=== PATIENT | female | born 1945 | race Caucasian/White ===

== ENCOUNTER 2020-06-25 19:12 | Emergency (ER) | payer MEDICARE, BC ==
--- NOTE | 2020-06-25 20:08 | CT ---
INDICATION: Head injury - slipped and fell hitting head above right ear. CT HEAD WITHOUT CONTRAST: Spiral 3.75 mm axial sections were obtained through the brain without contrast with sagittal and coronal reconstructions 06/25/20 - no comparisons. Total exam DLP was 1296.53 mGy-cm. Paranasal sinuses and mastoid air cells were well aerated. No cranial fracture site was identified. The orbits appear to be intact. Internal carotid artery calcifications are noted. A scalp hematoma is noted above and slightly behind the right ear. No underlying cranial fracture site was seen in that area. No shift of midline structures, ventricular abnormalities or abnormal areas of density were identified - no bleeding site or hematoma was seen. IMPRESSION: 1. No acute intracranial abnormalities. 2. Mild cortical atrophy. 3. Small scalp hematoma on the right. 4. Cerebrovascular disease with arterial calcifications. Report was called to Dr. Michaud at 1957 hours. [facility]
[2020-06-25] MEDS ORDERED: Acetaminophen 325 MG Tab PO ONE (20:12)
[2020-06-25] MEDS ORDERED: cloNIDine 0.1 MG Tab PO ONE (20:12)
[2020-06-25] MEDS ORDERED: Diphtheria,Pertussis(Acell),Tetanus Vaccine 0.5 ML SDV IM ONE (20:12)
--- NOTE | 2020-06-25 20:16 | EDM.PDOC ---
ED HPI GENERAL MEDICAL PROBLEM - General Chief Complaint: Head Injury Stated Complaint: FALL Time Seen by Provider: 06/25/20 20:10 Source of Information: Reports: Patient History Limitations: Reports: No Limitations - History of Present Illness INITIAL COMMENTS - FREE TEXT/NARRATIVE: Patient was brought by EMS,after she fell. She is a poor historian. She reports no LOC. Unable to remember why she fell,and no witness is present. Has h.o HTN,and stroke. forehead Pain Score (Numeric/FACES): 7 - Related Data Allergies Allergy/AdvReac Type Severity Reaction Status Date / Time No Known Allergies Allergy Verified 06/25/20 15:29 Home Meds: Home Meds Acetaminophen 500 mg PO Q6H PRN 06/25/20 [History] Bacillus Coagulans [Probiotic] 1 each PO DAILY 06/25/20 [History] Docusate Sodium/Sennosides [Senokot-S] 1 each PO DAILY 06/25/20 [History] Escitalopram Oxalate [Lexapro] 20 mg PO BEDTIME 06/25/20 [History] Glucosam/Chond-MSM 2/C/D3/Gavin [Oeccrvgegs-Zypyhqqgjkn-NEB] 2 each PO DAILY 06/25/20 [History] Lisinopril/Hydrochlorothiazide [Zestoretic 20-25 mg Tablet] 1 each PO DAILY 06/25/20 [History] Meloxicam [Mobic] 15 mg PO DAILY PRN 06/25/20 [History] Multivitamin 1 each PO DAILY 06/25/20 [History] Mupirocin Oint [Bactroban Oint] 2 applic TOP BID 06/25/20 [History] Oxybutynin Chloride [Ditropan Xl] 5 mg PO DAILY 06/25/20 [History] Pantoprazole Sodium [Protonix] 40 mg PO DAILY 06/25/20 [History] Rosuvastatin [Crestor] 5 mg PO DAILY 06/25/20 [History] polyethylene glycoL 3350 [MiraLAX] 17 gm PO DAILY 06/25/20 [History] Past Medical History Cardiovascular History: Reports: High Cholesterol, Hypertension Gastrointestinal History: Reports: Chronic Constipation, GERD, Hemorrhoids Musculoskeletal History: Reports: Osteoarthritis Other Musculoskeletal History: HIP PAIN, CHRONIC LOW BACK PAIN Other Neuro History: INSOMNIA Psychiatric History: Reports: Depression Hematologic History: Reports: Anemia - Past Surgical History Other HEENT Surgeries/Procedures: THYROID SURGERY GI Surgical History: Reports: Colonoscopy, EGD Musculoskeletal Surgical History: Reports: Knee Replacement Other Musculoskeletal Surgeries/Procedures:: RIGHT HIP ARTHROPLASTY ED ROS GENERAL - Review of Systems Review Of Systems: Comprehensive ROS is negative, except as noted in HPI. ED EXAM, HEAD INJURY - Physical Exam Exam: See Below Exam Limited By: No Limitations General Appearance: Alert, WD/WN Head: Normocephalic, Scalp Ecchymosis, Other (2 cm patietal scalp laceration) Eyes: Bilateral Eye: EOMI, PERRL Ears: Normal External Exam Nose: Normal Inspection Neck: Non-Tender, Full Range of Motion Cardiovascular: Normal Peripheral Pulses ED LACERATION/WOUND & LUIS M PROC - Laceration/Wound Repair Right Head Lac/wound length in cm: 2 Appearance: Superficial Distal NVT: Neuro & Vascular Intact Skin Prep: Chlorhexidine (Hibiciens) Closed with: Provencal EKG INTERPRETATION EKG Date: 06/25/20 Rhythm: NSR Course - Vital Signs Last Recorded V/S: Last Vital Signs Temp 97.6 F 06/25/20 19:12 Pulse 69 06/25/20 19:12 Resp 16 06/25/20 19:12 BP 189/73 H 06/25/20 19:12 Pulse Ox 99 06/25/20 19:12 - Orders/Labs/Meds Orders: Active Orders 24 hr Category Date Time Status BASIC METABOLIC PANEL,BMP [CHEM] Stat Lab 06/25/20 19:50 Received CBC WITH AUTO DIFF [HEME] Stat Lab 06/25/20 19:50 Received TROPONIN I [CHEM] Stat Lab 06/25/20 19:50 Received Departure - Departure Time of Disposition: 20:15 Disposition: Home, Self-Care 01 Condition: Good Clinical Impression: Scalp laceration - Discharge Information Referrals: Alba Allan, [employer] [Primary Care Provider] - Sepsis Event Note (ED) - Evaluation Sepsis Screening Result: No Definite Risk - Focused Exam Vital Signs: Vital Signs Temp Pulse Resp BP Pulse Ox 06/25/20 19:12 97.6 F 69 16 189/73 H 99 - Problem List & Annotations (1) Scalp laceration SNOMED Code(s): 643149289 Code(s): S01.01XA - LACERATION WITHOUT FOREIGN BODY OF SCALP, INITIAL ENCOUNTER Status: Acute Current Visit: Yes (2) HTN (hypertension) SNOMED Code(s): 54083125 Code(s): I10 - ESSENTIAL (PRIMARY) HYPERTENSION Status: Acute Current Visit: Yes Qualifiers: Hypertension type: essential hypertension Qualified Code(s): I10 - Ramone cooper (primary) hypertension - Problem List Review Problem List Initiated/Reviewed/Updated: Yes - My Orders Last 24 Hours: My Active Orders 06/25/20 19:50 BASIC METABOLIC PANEL,BMP [CHEM] Stat CBC WITH AUTO DIFF [HEME] Stat TROPONIN I [CHEM] Stat - Assessment/Plan Last 24 Hours: My Active Orders 06/25/20 19:50 BASIC METABOLIC PANEL,BMP [CHEM] Stat CBC WITH AUTO DIFF [HEME] Stat TROPONIN I [CHEM] Stat Plan: She was alert and without any symptoms. I used archie to close the laceration. I gave her Clonidine ,Tylenol and Tdap. Follow uip tomorrow for HTN.Remove archie in 5 days.
== END 2020-06-25 21:08 | disposition home or self-care (01) ==
LOC: FB.ED 19:12
DX: S01.01XA Laceration without foreign body of scalp, initial encounter (principal); E78.00 Pure hypercholesterolemia, unspecified; I10 Essential (primary) hypertension; M19.90 Unspecified osteoarthritis, unspecified site; F32.9 Major depressive disorder, single episode, unspecified; Z79.899 Other long term (current) drug therapy; K21.9 Gastro-esophageal reflux disease without esophagitis; Z23 Encounter for immunization; W19.XXXA Unspecified fall, initial encounter
CPT/HCPCS: 12001; 36415; 70450; 80048; 84484; 85025; 90471; 90715; 93005; 99284-25; A9270-GY

== ENCOUNTER 2020-06-26 08:37 | Day surgery (SDC) | payer MEDICARE, BC ==
[~2020-06-26 08:37] MED LIST: Sodium Chloride 0.9% 10 ML Syringe FLUSH PRN
[2020-06-26] MEDS ORDERED: Midazolam 1 MG/ML 2 ML SDV IV ONE (08:38)
[2020-06-26] MEDS ORDERED: fentaNYL 100 MCG/2 ML SDV IV ONE (08:38)
[2020-06-26] MEDS ORDERED: Lactated Ringers 1,000 ML IV SCH (09:20)
[2020-06-26] MEDS ORDERED: acetaZOLAMIDE 500 MG Cap.ER PO ONE (10:00)
--- NOTE | 2020-06-27 09:50 | OR ---
DATE OF OPERATION: 06/26/2020 SURGEON: Minal Ryan MD PREOPERATIVE DIAGNOSES: 1. Visually significant cataract, right eye. 2. Pseudoexfoliation syndrome, right eye. POSTOPERATIVE DIAGNOSES: 1. Visually significant cataract, right eye. 2. Pseudoexfoliation syndrome, right eye. PROCEDURES PERFORMED: Complex phacoemulsification with intraocular lens placement, right eye, CPT 76167. ASSISTANTS: None. ANESTHESIA: Local with sedation. COMPLICATIONS: None. BLOOD LOSS: None. IMPLANTS: Orlando [id number], 19.0 diopter lens implanted. CDE: 2.41. DESCRIPTION OF PROCEDURE: After risks and benefits were reviewed with the patient, consent was obtained in the preoperative area, and the operative eye was marked with a surgical pen. In the preoperative area, a pledget was used to dilate the pupil consisting of a mixture of phenylephrine 10%, cyclopentolate 2%, moxifloxacin 0.5%, and bupivacaine 0.75%. The patient was taken to the operating room, where a time-out was performed, and the patient was placed under monitored anesthesia care. Topical tetracaine was used for anesthesia. The operative eye was prepped and draped for ophthalmic surgery, and the microscope was brought into position and focused. A paracentesis incision was made, followed by injection of preservative-free 1% lidocaine into the anterior chamber, followed by injection of Viscoat into the anterior chamber. A microkeratome blade was used to make a corneal limbal incision temporally. A Malyugin ring was used to dilate the pupil to 7.0 mm due to pseudoexfoliation and poor dilation. A cystotome was used to make the beginning of the capsulorrhexis, which was carried around 360 degrees in a curvilinear fashion using Utrata forceps. A Rooney cannula with BSS was used to hydrodissect and hydrodelineate the nucleus. The nucleus was removed in a divide and conquer manner using phacoemulsification. Irrigation and aspiration were used to remove the remaining cortical material. Provisc was used to inflate the capsular bag, and a pre-loaded Orlando [id number], 19.0 diopter lens, serial number [id number] was injected into the capsular bag. A Sinskey hook was used to position and center the lens. The Malyugin ring was then removed from the anterior chamber and discarded. Next, irrigation and aspiration was used to remove any remaining viscoelastic and cortical material from the anterior chamber. BSS on a cannula was used to inflate the anterior chamber and hydrate the wound. The wound was checked and found to be watertight. 1 mg of Moxifloxacin was injected into the anterior chamber. Drapes were removed and the eye was cleaned. A drop of brimonidine 0.15% and a drop of TobraDex was placed. The eye was shielded, and the patient was taken to the recovery room in stable condition. CC: FELIX Medel CC: Sunny Christianson, [address] [address] /[phone] IRMA/NING
== END 2020-06-26 11:09 | disposition home or self-care (01) ==
LOC: FB.SDS 08:37
PROVIDERS: ATTEND Ophthalmology
DX: H25.813 Combined forms of age-related cataract, bilateral (principal); H40.1410 Capsular glaucoma with pseudoexfoliation of lens, right eye, stage unspecified; H35.371 Puckering of macula, right eye; H40.1424 Capsular glaucoma with pseudoexfoliation of lens, left eye, indeterminate stage; H43.811 Vitreous degeneration, right eye; Q14.1 Congenital malformation of retina; K21.9 Gastro-esophageal reflux disease without esophagitis; M19.90 Unspecified osteoarthritis, unspecified site; D50.9 Iron deficiency anemia, unspecified; E78.00 Pure hypercholesterolemia, unspecified; M70.62 Trochanteric bursitis, left hip; I10 Essential (primary) hypertension; F32.5 Major depressive disorder, single episode, in full remission; Z79.899 Other long term (current) drug therapy
CPT/HCPCS: 00142-QZ; A9270-GY; J2250; J3010; J7120; V2632

== ENCOUNTER 2021-07-19 17:21 | Emergency (ER) | payer MEDICARE, BC ==
[2021-07-19] MEDS ORDERED: Lidocaine 1% 20 ML MDV INFILT ONE (17:22)
--- NOTE | 2021-07-19 18:14 | EDM.PDOC ---
ED HPI GENERAL MEDICAL PROBLEM - General Chief Complaint: Laceration Stated Complaint: FALL Time Seen by Provider: 07/19/21 17:50 Source of Information: Reports: Patient History Limitations: Reports: No Limitations - History of Present Illness INITIAL COMMENTS - FREE TEXT/NARRATIVE: pt had accidental fall, tripped on steps and has a lac at forehead, denies any LOC or any other injuries or any other medical concerns. Right Knee Pain Score (Numeric/FACES): 5 - Related Data Allergies Allergy/AdvReac Type Severity Reaction Status Date / Time No Known Allergies Allergy Verified 06/26/20 08:54 Home Meds: Home Meds Acetaminophen 500 mg PO Q6H PRN 06/25/20 [History] Bacillus Coagulans [Probiotic] 1 each PO DAILY 06/25/20 [History] Docusate Sodium/Sennosides [Senokot-S] 1 each PO DAILY PRN 06/25/20 [History] Escitalopram Oxalate [Lexapro] 20 mg PO BEDTIME 06/25/20 [History] Glucosam/Chond-MSM 2/C/D3/Gavin [Myzcsstpil-Gttcdazigcu-XIM] 2 each PO DAILY 06/25/20 [History] Lisinopril/Hydrochlorothiazide [Zestoretic 20-25 mg Tablet] 1 each PO DAILY 06/25/20 [History] Multivitamin 1 each PO DAILY 06/25/20 [History] Oxybutynin Chloride [Ditropan Xl] 5 mg PO DAILY 06/25/20 [History] Pantoprazole Sodium [Protonix] 40 mg PO DAILY 06/25/20 [History] Rosuvastatin [Crestor] 5 mg PO DAILY 06/25/20 [History] polyethylene glycoL 3350 [MiraLAX] 17 gm PO DAILY PRN 06/25/20 [History] Past Medical History HEENT History: Reports: Impaired Vision Other HEENT History: wears glasses Cardiovascular History: Reports: High Cholesterol, Hypertension Gastrointestinal History: Reports: Chronic Constipation, GERD, Hemorrhoids Musculoskeletal History: Reports: Osteoarthritis Other Musculoskeletal History: HIP PAIN, CHRONIC LOW BACK PAIN Other Neuro History: INSOMNIA Psychiatric History: Reports: Depression Hematologic History: Reports: Anemia - Past Surgical History Other HEENT Surgeries/Procedures: THYROID SURGERY GI Surgical History: Reports: Colonoscopy, EGD Musculoskeletal Surgical History: Reports: Knee Replacement Other Musculoskeletal Surgeries/Procedures:: RIGHT HIP ARTHROPLASTY Social & Family History - Family History Family Medical History: No Pertinent Family History - Tobacco Use Tobacco Use Status *Q: Never Tobacco User - Caffeine Use Caffeine Use: Reports: None - Recreational Drug Use Recreational Drug Use: No ED ROS GENERAL - Review of Systems Review Of Systems: See Below Constitutional: Reports: No Symptoms HEENT: Reports: No Symptoms Respiratory: Reports: No Symptoms Cardiovascular: Reports: No Symptoms GI/Abdominal: Reports: No Symptoms ED EXAM, SKIN/RASH Exam: See Below Exam Limited By: No Limitations General Appearance: Alert, No Apparent Distress Ears: Normal External Exam, Normal Canal Nose: Normal Inspection, Other (minor abrasions over the nose ) Throat/Mouth: Normal Inspection, Normal Oropharynx Head: Other (there is a 2 cm clean lac over the left eyebrow ) Neck: Normal Inspection, Supple, Non-Tender Respiratory/Chest: No Respiratory Distress, Lungs Clear Cardiovascular: Normal Peripheral Pulses, Regular Rate, Rhythm GI/Abdominal: Normal Bowel Sounds, Soft, Non-Tender Extremities: Normal Range of Motion, Non-Tender, Other (minor abrasions aover the anterior sides of her knees ) ED SKIN PROCEDURES - Laceration/Wound Repair Left Middle Anterior Lateral Forehead Appearance: Superficial Distal NVT: Neuro & Vascular Intact Local Anesthesia - Lidocaine (Xylocaine): 1% Plain Local Anesthetic Volume: 2cc Exploration/Debridement/Repair: Wound Explored, No Foreign Material Found Closed with: Sutures Lac/Wound length In cm: 2 Suture Size: 3-0 # of Sutures: 4 Suture Type: Nylon Tetanus Status Addressed: Yes Complications: No Course - Vital Signs Text/Narrative:: usual wound care was explained , pt to monitor for signs of infection and follow with PCP in 1 week for suture removal. Last Recorded V/S: Last Vital Signs Temp 36.9 C 07/19/21 17:49 Pulse 64 07/19/21 17:49 Resp 18 07/19/21 17:49 BP 142/75 H 07/19/21 17:49 Pulse Ox 100 07/19/21 17:49 Departure - Departure Time of Disposition: 18:14 Disposition: Home, Self-Care 01 Clinical Impression: Forehead laceration - Discharge Information Sepsis Event Note (ED) - Evaluation Sepsis Screening Result: No Definite Risk - Focused Exam Vital Signs: Vital Signs Temp Pulse Resp BP Pulse Ox 07/19/21 17:49 36.9 C 64 18 142/75 H 100 07/19/21 17:33 36.9 C 64 16 142/75 H 100
== END 2021-07-19 18:24 | disposition home or self-care (01) ==
LOC: FB.ED 17:21
DX: S01.81XA Laceration without foreign body of other part of head, initial encounter (principal); E78.00 Pure hypercholesterolemia, unspecified; I10 Essential (primary) hypertension; K21.9 Gastro-esophageal reflux disease without esophagitis; Z79.899 Other long term (current) drug therapy; W01.0XXA Fall on same level from slipping, tripping and stumbling without subsequent striking against object, initial encounter
CPT/HCPCS: 12011; 99282-25

== ENCOUNTER 2022-10-25 22:13 | Emergency (ER) | payer MEDICARE, BC | END 2022-10-26 00:01 | disposition home or self-care (01) | LOC: FB.ED 22:13 | DX: U07.1 COVID-19 (principal); E78.00 Pure hypercholesterolemia, unspecified; I10 Essential (primary) hypertension; K21.9 Gastro-esophageal reflux disease without esophagitis; E66.9 Obesity, unspecified; Z68.38 Body mass index [BMI] 38.0-38.9, adult; Z79.899 Other long term (current) drug therapy | CPT/HCPCS: 99283; U0002 ==

== ENCOUNTER 2024-03-09 13:12 | Emergency (ER) | payer MEDICARE, BC ==
[2024-03-09] MEDS: Acetaminophen 500 MG Tab PO ONE (14:03)
[2024-03-09] MEDS: Diphtheria,Pertussis(Acell),Tetanus Vaccine 0.5 ML Syringe IM ONE (14:07)
[2024-03-09] MEDS: Morphine 2 MG/ML SYRINGE IM ONE (15:24)
[2024-03-09] MEDS: Amoxicillin/Clavulanate K 875-125 MG Tab PO ONE (16:40)
== END 2024-03-09 18:25 | disposition home or self-care (01) ==
LOC: FB.ED 13:12
DX: S02.2XXA Fracture of nasal bones, initial encounter for closed fracture (principal); S01.81XA Laceration without foreign body of other part of head, initial encounter; S09.90XA Unspecified injury of head, initial encounter; I10 Essential (primary) hypertension; E78.00 Pure hypercholesterolemia, unspecified; Z79.899 Other long term (current) drug therapy; Z23 Encounter for immunization; W01.198A Fall on same level from slipping, tripping and stumbling with subsequent striking against other object, initial encounter; Y93.01 Activity, walking, marching and hiking
CPT/HCPCS: 12002; 12011; 70450; 70486; 72125; 73562; 90471; 90715; 99284; A9270